=== PATIENT | female | born 1965 | race Caucasian/White ===

== ENCOUNTER 2019-08-01 20:12 | Emergency (ER) | payer OTHER ==
[2019-08-01 20:55] VITALS: BP 154/90
--- NOTE | 2019-08-01 21:41 | ED ---
Lower Extremity - HPI Summary HPI Summary: 54 yr old female with chronic lymphedema of her lower extremities after a history of pelvic surgery years ago. She got some hairs stuck between the right 2,3 toes and her picked them out. She has some redness between the toes that is subtle. She is going on a cruise and is asking for a script before she leaves in the morning. - History of Current Complaint Chief Complaint: [place] Stated Complaint: RIGHT FOOT INJURY Time Seen by Provider: 08/01/19 21:28 Hx Last Menstrual Period: 02/23/14 Pain Intensity: 2 - Allergies/Home Medications Allergies/Adverse Reactions: Allergies Allergy/AdvReac Type Severity Reaction Status Date / Time amoxicillin [From Augmentin] Allergy Intermediate Rash Verified 08/01/19 20:59 clavulanic acid Allergy Intermediate Rash Verified 08/01/19 20:59 [From Augmentin] Home Medications: Home Medications cloNIDine TAB* [Catapres 0.1 MG TAB*] 0.1 mg PO BEDTIME 08/01/19 [History Confirmed 08/01/19] PMH/Surg Hx/FS Hx/Imm Hx - Cancer History Cancer Type, Location and Year: uterine cancer - Surgical History Surgery Procedure, Year, and Place: cholecystectomy 2003, [facility], C section x 2; benign bone tumor right leg 1977. hysterectomy/lymphedema Infectious Disease History: No Infectious Disease History: Denies: Traveled Outside the [place] in Last 30 Days - Family History Known Family History: Positive: None - Social History Alcohol Use: Occasionally Substance Use Type: Reports: None Smoking Status (MU): Never Smoked Tobacco Review of Systems Positive: Other - redness between right 2,3 toes All Other Systems Reviewed And Are Negative: Yes Physical Exam Triage Information Reviewed: Yes Vital Signs On Initial Exam: Initial Vitals Temp Pulse Resp BP Pulse Ox 97.9 F 95 15 154/90 100 08/01/19 20:47 08/01/19 20:47 08/01/19 20:47 08/01/19 20:47 08/01/19 20:47 Vital Signs Reviewed: Yes Appearance: Positive: Well-Appearing, No Pain Distress Skin: Positive: Other - mild erythema between the 2nd and 3rd toes, no streaking up the foot. Head/Face: Positive: Normal Head/Face Inspection Eyes: Positive: EOMI, RADHA ENT: Positive: Normal ENT inspection Neck: Positive: Nontender Respiratory/Lung Sounds: Positive: Clear to Auscultation, Breath Sounds Present Cardiovascular: Positive: RRR. Negative: Murmur Abdomen Description: Negative: Distended Musculoskeletal: Positive: Strength/ROM Intact Neurological: Positive: Sensory/Motor Intact, Alert, Oriented to Person Place, Time, CN Intact II-III Psychiatric: Positive: Normal Diagnostics - Vital Signs Vital Signs Temp Pulse Resp BP Pulse Ox 08/01/19 20:47 97.9 F 95 15 154/90 100 - Laboratory Lab Statement: Any lab studies that have been ordered have been reviewed, and results considered in the medical decision making process. Lower Extremity Course/Dx - Course Course Of Treatment: 54 yr old with mild cellultiis between right foot toes 2/3 . Rx clinda. - Diagnoses Provider Diagnoses: Cellulitis of foot, right, Hypertension Discharge ED - Sign-Out/Discharge Documenting (check all that apply): Patient Departure All imaging exams completed and their final reports reviewed: No Studies - Discharge Plan Condition: Good Disposition: HOME Prescriptions: Clindamycin Cap(NF) [Clindamycin Cap 300 mg Cap(NF)] 300 mg PO TID #30 cap Patient Education Materials: Cellulitis (DC), Hypertension (ED) Referrals: Marcia Moore MD [Primary Care Provider] - 2 Days - Billing Disposition and Condition Condition: GOOD Disposition: Home
== END 2019-08-01 21:46 | disposition home or self-care (01) ==
LOC: UCCORT 20:12
DX: L03.115 Cellulitis of right lower limb (principal); I10 Essential (primary) hypertension; Z88.0 Allergy status to penicillin; Z88.8 Allergy status to other drugs, medicaments and biological substances; Z85.42 Personal history of malignant neoplasm of other parts of uterus
CPT/HCPCS: 99212; G0463